=== PATIENT | male | born 1970 | race Caucasian/White ===

== ENCOUNTER → 2019-09-26 | Outpatient (CLI) | payer OTHER | LOC: M LABSMTC 11:46 | PROVIDERS: ATTEND Family Medicine | DX: Z20.828 Contact with and (suspected) exposure to other viral communicable diseases (principal); Z11.59 Encounter for screening for other viral diseases ==

== ENCOUNTER → 2020-02-09 | Outpatient (CLI) | payer OTHER ==
--- NOTE | 2020-02-09 10:01 | REP ---
INDICATION: DYSPEPSIA/ADB PAIN. COMPARISON: None. TECHNIQUE/RADIOTRACER AND DOSE: 6.6 mCi of Technetium-99m mebrofenin was injected and sequential anterior images are acquired. FINDINGS: The initial hepatocellular parenchymal uptake phase is normal and homogeneous. Intra- and extra-hepatic bile ducts are labeled by the 5-minute image. The gallbladder is first labeled on the 5-minute image. There is normal washout from the liver parenchyma into the gallbladder and small intestine on subsequent images. IMPRESSION: Normal hepatobiliary scan. <Electronically signed by Angel Mckeon > 02/09/20 0923
== END ==
LOC: M RAD 07:24
DX: R10.9 Unspecified abdominal pain (principal)

== ENCOUNTER 2022-04-21 13:23 | Emergency (ER) | payer OTHER ==
[~2022-04-21] VITALS: Ht 175.3 cm; Wt 138.6 kg
[2022-04-21] MEDS ORDERED: BENZ200C70 (13:58)
[2022-04-21] MEDS ORDERED: LISI20TA33 (13:58)
[2022-04-21] MEDS ORDERED: OMEP-173 (13:58)
[2022-04-21] MEDS ORDERED: ALBU8.5H (13:58)
[2022-04-21 14:52] VITALS: BP 141/73
== END 2022-04-21 14:55 | disposition home or self-care (01) ==
LOC: M ED 13:23 → EDBD 13:23 → M ED 14:55
DX: S69.91XA Unspecified injury of right wrist, hand and finger(s), initial encounter (principal); V49.40XA Driver injured in collision with unspecified motor vehicles in traffic accident, initial encounter; Z79.899 Other long term (current) drug therapy

== ENCOUNTER → 2022-05-03 | Outpatient (CLI) | payer OTHER ==
[~2022-05-03] MED LIST: ALBU8.5H; BENZ200C70; LISI20TA33; OMEP-173
== END ==
LOC: M SOG 13:31
PROVIDERS: ATTEND Physician Assistant
DX: S60.211A Contusion of right wrist, initial encounter (principal); W18.30XA Fall on same level, unspecified, initial encounter; Y92.009 Unspecified place in unspecified non-institutional (private) residence as the place of occurrence of the external cause

== ENCOUNTER → 2022-05-09 | Outpatient (CLI) | payer OTHER | LOC: M RAD 07:22 | PROVIDERS: ATTEND Physician Assistant | DX: S60.211A Contusion of right wrist, initial encounter (principal); W18.30XA Fall on same level, unspecified, initial encounter; Y92.009 Unspecified place in unspecified non-institutional (private) residence as the place of occurrence of the external cause ==

== ENCOUNTER → 2022-06-11 | Outpatient (CLI) | payer OTHER | LOC: M SOG 08:31 | PROVIDERS: ATTEND Physician Assistant | DX: S62.001A Unspecified fracture of navicular [scaphoid] bone of right wrist, initial encounter for closed fracture (principal); M25.532 Pain in left wrist; W18.30XA Fall on same level, unspecified, initial encounter; Y92.009 Unspecified place in unspecified non-institutional (private) residence as the place of occurrence of the external cause ==